=== PATIENT | male | born 1965 | race Caucasian/White ===

== ENCOUNTER 2018-07-25 00:30 | Emergency (ER) | payer SELFPAY, OTHER | END 2018-07-25 02:16 | disposition home or self-care (01) ==

== ENCOUNTER 2018-08-09 11:50 | Emergency (ER) | payer SELFPAY | END 2018-08-09 13:14 | disposition home or self-care (01) ==

== ENCOUNTER 2018-08-09 19:03 | Emergency (ER) | payer OTHER | END 2018-08-09 21:02 | disposition home or self-care (01) ==